=== PATIENT | female | born 1960 | race African-American/Black ===

== ENCOUNTER 2018-04-15 19:17 | Emergency (ER) | payer MEDICAID ==
[~2018-04-15] VITALS: Ht 167.6 cm; Wt 78.0 kg
[~2018-04-15 19:17] MED LIST: ALPR0.25 PO; AMLO10TA4 PO; ANXIETY PILL; COMBIVENT INH; MONT10TA24 PO; SERT25TA PO
[2018-04-15 19:47] VITALS: BP 138/101
== END 2018-04-15 22:47 | disposition left against medical advice (07) ==
LOC: ER 21:44
DX: Z53.21 Procedure and treatment not carried out due to patient leaving prior to being seen by health care provider (principal)
CPT/HCPCS: 93005